=== PATIENT | female | born 1990 | race Caucasian/White ===

== ENCOUNTER 2017-07-26 04:53 | Inpatient (IN) | payer OTHER, SELFPAY ==
[2017-07-26 05:24] VITALS: BMI 31.3
[2017-07-26] MEDS ORDERED: Promethazine HCl 25 MG/ML VIAL IM PRN (05:37)
[2017-07-26] MEDS ORDERED: Ondansetron HCl/PF 4 MG/2 ML Vial IVP PRN (05:37)
[2017-07-26] MEDS ORDERED: Lidocaine 1% (PF) 30 ML VIAL SC PRN (05:37)
[2017-07-26] MEDS ORDERED: LR / Pitocin 40 units/1000 ml 1,000 ML IV PRN (05:37)
[2017-07-26] MEDS ORDERED: Ibuprofen 800 MG TAB PO PRN (05:37)
[2017-07-26] MEDS ORDERED: Oxytocin 10 UNITS/ML VIAL ONE (05:43)
--- NOTE | 2017-07-26 06:19 | HP ---
DATE: 07/26/2017 TIME OF EVALUATION: 0530. LOCATION: Labor and Delivery. Patient of Dr. Myers. REASON FOR EVALUATION: Eminent delivery at term. HISTORY OF PRESENT ILLNESS: This is a 26-year-old G2, P1, at term who sees Dr. Myers who desires low intervention during . She arrived to Labor and Delivery at approximately 0530 and was found to be 9.5 cm dilated. She has an uncomplicated course. ALLERGIES: None. PAST SURGICAL HISTORY: Includes a neck surgery for a cyst removal. OBSTETRIC HISTORY: Significant for prior vaginal . PHYSICAL EXAMINATION: She is afebrile and normotensive. CERVICAL EXAM: Cervical examination reveals a cervix that is 9-10 cm, completely effaced about +1 s tation. heart tones are in the 140s to 150s on Doppler. Contractions are approximately every 3-5 minutes. ASSESSMENT: This is a patient who is a G2, P1 at term, GBS negative, who arrived as a stat admissio n for entering second stage of labor. Dr. Myers is not available for delivery. PLAN: 1. Admit to Labor and Delivery. 2. Patient desires low intervention. 3. Pain meds per protocol as needed. 4. Await delivery.
[2017-07-26 06:31] LABS: Hematocrit 39.3 % (36.0-47.0); Mean Platelet Volume 9.5 fL (7.4-10.4); Red Blood Cell (RBC) Count 4.08 mill/uL (4.20-5.40); White Blood Cell (WBC) Count 7.1 thou/uL (4.8-10.8)
[2017-07-26] MEDS ORDERED: Preparation H Ointment 28 GM TUBE PR PRN (06:44)
[2017-07-26] MEDS ORDERED: Adacel (T-DAP) 0.5 ML VIAL IM ONE (06:44)
[2017-07-26] MEDS ORDERED: Measles/Mumps/Rubella 10 MCG/0.5 ML VIAL SC ONE (06:44)
[2017-07-26] MEDS ORDERED: Milk Of Magnesia 30 ML UDCUP PO PRN (06:44)
[2017-07-26] MEDS ORDERED: diphenhydrAMINE HCl 25 MG CAP PO PRN (06:44)
[2017-07-26] MEDS ORDERED: Benzocaine/Menthol 20-0.5% 60 ML CAN TOP PRN (06:44)
[2017-07-26] MEDS ORDERED: Acetaminophen/Codeine 30-300mg Tablet PO PRN ×2 (06:44)
[2017-07-26] MEDS ORDERED: Bisacodyl 10 MG SUPP PR PRN (06:44)
[2017-07-26] MEDS ORDERED: Lanolin Ointment 7 GM TUBE TOP PRN (06:44)
[2017-07-26] MEDS ORDERED: Varicella virus, LIVE 0.5 ML VIAL SC ONE (06:44)
[2017-07-26] MEDS ORDERED: LR / Pitocin 40 units/1000 ml 1,000 ML IV SCH (06:45)
--- NOTE | 2017-07-26 07:06 | PRG ---
DATE OF SERVICE: 07/26/2017 TIME: 652 ARTERIAL CORD GAS The patient's cord gas has returned with a pH of 7.3, pCO2 at 41 and base excess -2.5. This was emily en from the side of the placental surface.
[2017-07-26] MEDS: Lactated Ringer's 1,000 ML IV SCH ×2 (07:13→14:26)
[2017-07-26 07:26] LABS: CO2 Tension (PaCO2) 41.8 mmHg (44.0-56.0)
--- NOTE | 2017-07-26 08:26 | DN ---
DATE OF SERVICE: 07/26/2017 TIME OF DELIVERY: 0619 hours. LOCATION: Labor and Delivery. PREPROCEDURE DIAGNOSIS: G2, P1, at term, who was admitted with eminent delivery. POST-PROCEDURE DIAGNOSES: 1. G2, P1, at term, who was admitted with eminent delivery. 2. Status post spontaneous vaginal . DELIVERING PHYSICIAN: Drew Bailey MD ANESTHESIA: None. FINDINGS: 1. male with Apgars 8 and 8. 2. Three-vessel cord intact placenta. 3. Second degree laceration noted. 4. Patient delivered on all fours (Clara maneuver). 5. NICU present for delivery. ESTIMATED BLOOD LOSS: Less than or equal to 300 mL. COMPLICATIONS: None. COUNTS: Correct. Laceration was repaired with local anesthesia approximately 5 mL of 1% lidocaine with 2-0 chromic. All counts were correct. Placenta and gas specimen sent. The gas was sent from the placental surface as the section of cord was not able to have a gas blood sample collected. The patient has a handwritten progress note also on the chart. TECHNIQUE: Patient progressed to spontaneous vaginal delivery while she was on all fours pushing (G askin). Second degree laceration was noted and this was repaired. The patient tolerated the repair well and the baby had assessment by Neonatology. There was a 3-vessel cord and placenta was intact . It was sent for meconium staining noted before delivery. The patient will have routine recovery.
[2017-07-26] MEDS: Ferrous Sulfate 325 MG TAB PO SCH ×2 (11:09→17:22)
[2017-07-26] MEDS: Prenatal Vitamin 1 TAB PO SCH (11:16)
[2017-07-26] MEDS: Docusate (Surfak) 240 MG CAP PO SCH ×2 (11:16→21:09)
--- NOTE | 2017-07-26 13:04 | PDOC.PP ---
Post Progress Note Post Day #: 0 -: no concerns, no pain, doing well PO intake tolerated: yes Flatus: yes Ambulation: yes Vital Signs (12 hours) Temp Pulse Resp BP 07/26/17 11:10 65 20 110/61 07/26/17 10:05 98.2 F 70 20 109/59 L 07/26/17 08:00 98.1 F 58 L 18 Weight Weight 212 lb - Physical Examination General: NAD Fundus firm & at: umb Extremities: negative homans (B) Skin: no rash Result Diagrams: 07/26/17 05:48 Additional Labs: Post Labs Blood Type O POSITIVE 07/26/17 05:48 Hep Bs Antigen Non-Reactive S/CO (NonReactive) 07/26/17 05:48 (1) Vaginal delivery Code(s): O80 - ENCOUNTER FOR FULL-TERM UNCOMPLICATED DELIVERY Status: Acute - Assessment/Plan PPD0 sp precip delivery this AM. Plan for DC tomorrow if baby DC.
[2017-07-26] MEDS: Ibuprofen 800 MG TAB PO SCH ×3 (14:27→21:10)
[2017-07-27 04:55] LABS: Hematocrit 33.7 % (36.0-47.0); Mean Platelet Volume 9.1 fL (7.4-10.4); Red Blood Cell (RBC) Count 3.48 mill/uL (4.20-5.40)
[2017-07-27] MEDS: Ibuprofen 800 MG TAB PO SCH (05:02)
[2017-07-27 07:58] VITALS: BP 110/62; TEMP 97.6
[2017-07-27] MEDS: Lactated Ringer's 1,000 ML IV SCH (09:06)
[2017-07-27] MEDS: Ferrous Sulfate 325 MG TAB PO SCH (09:06)
[2017-07-27] MEDS: Prenatal Vitamin 1 TAB PO SCH (09:07)
[2017-07-27] MEDS: Docusate (Surfak) 240 MG CAP PO SCH (09:07)
== END 2017-07-27 12:30 | disposition home or self-care (01) | DRG 775 ==
LOC: L&D/OP 04:53 → L&D-LIB 06:18 → 3SW 10:07
PROVIDERS: ADMIT Obstetrics & Gynecology; ATTEND Obstetrics & Gynecology
PROC: 10E0XZZ Delivery of Products of Conception, External Approach (ICD-10-PCS; principal; 2017-07-26)
PROC: 0KQM0ZZ Repair Perineum Muscle, Open Approach (ICD-10-PCS; 2017-07-26)
DX: O77.0 Labor and delivery complicated by meconium in amniotic fluid (principal); O70.1 Second degree perineal laceration during delivery; Z37.0 Single live birth; Z3A.38 38 weeks gestation of pregnancy
CPT/HCPCS: 36415; 82805; 85027; 86780; 87340; 87389; 88307; J2001; J2590

== ENCOUNTER 2018-07-20 17:22 | Emergency (ER) | payer OTHER ==
[2018-07-20 18:09] LABS: Hemoglobin 15.8 g/dL (12.0-16.0); Mean Corpuscular HGB CONC 33.7 g/dL (32.0-36.0); Mean Corpuscular Volume 91.9 fL (78.0-98.0); Mean Platelet Volume 8.8 fL (7.4-10.4); Platelet Count 240 thou/uL (130-400); RBC Distribution Width 11.7 % (11.5-14.5); Red Blood Cell (RBC) Count 5.09 mill/uL (4.20-5.40); White Blood Cell (WBC) Count 20.6 thou/uL (4.8-10.8)
[2018-07-20 18:24] LABS: ALT (SGPT) 17 U/L (8-55); AST (SGOT) 15 U/L (5-34); Albumin 4.5 g/dL (3.5-5.0); Alkaline Phosphatase 85 U/L (40-150); Anion Gap 18 mmol/L (10-20); BUN (Urea Nitrogen) 9 mg/dL (7.0-18.7); Bilirubin, Total 2.2 mg/dL (0.2-1.2); Calc. Creatinine Clearance 0 mL/min (70-130); Carbon Dioxide 20 mmol/L (22-29); Chloride 100 mmol/L (98-107); Estimated GFR-MDRD 75; Globulin 3.9 g/dL (2.4-3.5); Glucose 119 mg/dL (70-105); Lipase 23 U/L (8-78); Potassium 3.5 mmol/L (3.5-5.1); Protein, Total 8.4 g/dL (6.0-8.3); Sodium 134 mmol/L (136-145)
[2018-07-20 18:30] LABS: Bilirubin Negative (Negative); Blood, Urine Moderate (Negative); Clarity CLOUDY (Clear); Glucose, Urine (Dipstick) Negative (Negative); Leukocyte Large (Negative); Nitrite Positive (Negative); Protein, Urine (Dipstick) 100 mg/dL (Neg-Trace); Specific Gravity, Urine 1.016 (1.002-1.036); Urobilinogen 0.2 mg/dL (0.2-1.0); pH, Urine 5.5 (5.0-9.0)
[2018-07-20 18:34] LABS: Bacteria/HPF 2+ HPF (None Seen); Hyaline Casts/LPF 0-3 HYALINE CAST LPF (0-3 Hyaline); Pathc Cast-AUWi Flag 0.72 (0-2.49)
[2018-07-20 18:35] LABS: Pregnancy Test - Urine (BHCG) POSITIVE (Negative); Pregu Control Background? CLEAR/WHITE (CLR/WHITE); Pregu Control Bar Appear? YES (CONTROL BAR); Specific Gravity 1.016 (1.002-1.036)
[2018-07-20 18:39] LABS: Band 5 % (5-11); Lymphocytes 3 % (21-51); MDiff Complete? YES; Monocytes 4 % (0-10); Neutrophil 88 % (42-75); PLT Morphology Comment Appears Adequate; RBC Morphology Normal
[2018-07-20] MEDS ORDERED: cefTRIAXone\\ROCEPHIN 2 GM VIAL ONE (19:08)
--- NOTE | 2018-07-20 19:12 | ULT ---
OBSTETRICAL SONOGRAM: HISTORY: Early . Pelvic pain. TECHNIQUE: Transvaginal imaging. FINDINGS: The urinary bladder is decompressed. A retroverted uterus contains a yolk sac and a pole. Hea rt motion at 160 beats per minute. Measurements correlate with 7 weeks' 0 days' gestational age. He terogeneous subchorionic fluid collection along the lower uterine segment has the appearance of a sma ll, subchorionic hematoma. No free fluid in the pelvis. Each ovary has a normal appearance and demo nstrates good color and spectral Doppler flow. IMPRESSION: 1. Early intrauterine gestation. 2. Retroverted uterus. 3. Small, subchorionic hematoma. 4. Measurements correlate with 7 weeks' 0 days' gestational age. POS: BST
== END 2018-07-20 21:08 | disposition home or self-care (01) ==
LOC: ERS 17:22
DX: O23.01 Infections of kidney in pregnancy, first trimester (principal); N12 Tubulo-interstitial nephritis, not specified as acute or chronic; O99.341 Other mental disorders complicating pregnancy, first trimester; F32.9 Major depressive disorder, single episode, unspecified; Z87.891 Personal history of nicotine dependence
CPT/HCPCS: 76856; 80053; 81003; 81015; 81025; 83690; 84702; 85025; 86850; 86900; 86901; 96361; 96365; J0696

== ENCOUNTER 2019-02-24 16:12 | Inpatient (IN) | payer OTHER ==
[2019-02-24 16:34] VITALS: BMI 31.7
[2019-02-24] MEDS ORDERED: Ondansetron PF 4 MG/2 ML Vial IVP PRN ×2 (16:39→17:46)
[2019-02-24] MEDS ORDERED: Butorphanol Tartrate 1 MG/ML VIAL SLOW IVP PRN (16:39)
[2019-02-24] MEDS ORDERED: Zolpidem Tartrate 5 MG TAB PO PRN (16:39)
[2019-02-24] MEDS ORDERED: Lactated Ringer's 1,000 ML IV SCH (16:45)
[2019-02-24] MEDS: Lactated Ringer's 1,000 ML IV SCH ×2 (16:50→21:24)
[2019-02-24 17:03] LABS: Mean Corpuscular HGB CONC 33.9 g/dL (32.0-36.0); Mean Corpuscular Hemoglobin 30.8 pg (27.0-31.0); Mean Platelet Volume 9.2 fL (7.4-10.4); Platelet Count 232 thou/uL (130-400); RBC Distribution Width 12.8 % (11.5-14.5); White Blood Cell (WBC) Count 9.5 thou/uL (4.8-10.8)
[2019-02-24] MEDS ORDERED: Fentanyl 4 mcg/Bup 0.1% Cadd 100 ML ONE (17:18)
[2019-02-24] MEDS ORDERED: Lidocaine 1% (PF) 30 ML VIAL ONE (17:19)
[2019-02-24 17:44] LABS: Syphilis Antibody Nonreactive (Nonreactive); Syphilis Antibody Index 0.03 S/CO (<1.00 Non-Reactive)
[2019-02-24 17:45] LABS: HBSAg Index 0.35 S/CO (0-0.99); Hep B Surf Ag Non-Reactive S/CO (NonReactive)
[2019-02-24] MEDS ORDERED: Fentanyl 100 MCG/2 ML VIAL ONE (17:45)
[2019-02-24] MEDS ORDERED: Lactated Ringer's 500 ML IV PRN (17:46)
[2019-02-24] MEDS ORDERED: Promethazine HCl 25 MG/ML VIAL IM PRN (17:46)
[2019-02-24] MEDS ORDERED: Acetaminophen 325 MG TAB PO PRN (17:46)
[2019-02-24] MEDS ORDERED: Lidocaine 1.5%/Epinephrine 1:200,000 5 ML AMPUL IJ ONE (17:46)
[2019-02-24] MEDS ORDERED: ePHEDrine/0.9% NaCl/PF SYRINGE 50 mg/10 ml SLOW IVP PRN (17:46)
[2019-02-24] MEDS ORDERED: Eucerin (Mineral Oil/Petrolatum,White) 30 gm Jar TOP PRN (17:46)
[2019-02-24] MEDS ORDERED: Naloxone HCl 0.4 mg/ml Vial IVP PRN ×2 (17:46)
[2019-02-24] MEDS ORDERED: diphenhydrAMINE 50 MG/ML VIAL IVP PRN (17:46)
[2019-02-24] MEDS ORDERED: Fentanyl 4 mcg/Bupivacaine 0.1% Cassette 100 ML EPIDURAL SCH (18:00)
[2019-02-24] MEDS ORDERED: Communication Order-Pharmacy FS SCH (18:00)
--- NOTE | 2019-02-24 22:04 | PDOC.LDHP ---
Labor and Delivery H&P Chief complaint: contractions HPI: Pt presents for contractions @ 38+ weeks. VTX presentation confirmed on admit. Current gestational age (weeks): 38 Due date: 03/05/19 Dating criteria: last menstrual period, first trimester ultrasound Grav: 3 Para: 2 OB History Details: 2 Abnormal US findings: No Current medications: pre- vitamins, other (prozac 40mg a day) Previous surgical history: none Allergies/Adverse Reactions: Allergies Allergy/AdvReac Type Severity Reaction Status Date / Time No Known Allergies Allergy Verified 02/24/19 16:35 Social history: none - Physical Exam Vital signs reviewed and normal: yes General: NAD Heart: RRR Lungs: CTAB Abdomen: gravid Extremeties: no edema FHT: category 1 - Vaginal Exam cm dilated: 5 Effacement: 90% Station: 0 - OB Labs Blood type: O RH: positive Antibody Screen: negative HIV: negative RPR: negative HEPSAg: negative 1 hour GCT: negative GBS: negative Rubella: immune - Assessment L&D Assessment: term patient in labor - Plan Plan: admit to L&D, labor augmentation if indicated, informed consent obtained, anesthesia consult for pain management -: A/P: @ 38+ weeks in active labor. Admit, anticipate .
[2019-02-24] MEDS: NS / Oxytocin 40 units/1000ml 1,000 ML ONE (22:25)
--- NOTE | 2019-02-24 22:33 | PDOC.OPDEL ---
OB Operative/Delivery Note Delivery Dr/Surgeon: Louis Pre-Delivery Diagnosis: active labor Procedure/Post Delivery Dx: spontaneous vaginal delivery Weeks gestation: 38 Anesthesia: epidural - Findings A Sex: male - Additional Findings/Plan Repaired Obstetrical Laceration: periurethral (right) Estimated blood loss: 150ml Post delivery plan: routine recovery
[2019-02-25] MEDS: NS / Oxytocin 40 units/1000ml 1,000 ML ONE (00:14)
[2019-02-25] MEDS ORDERED: Milk Of Magnesia 30 ML UDCUP PO PRN (01:45)
[2019-02-25] MEDS ORDERED: Benzocaine-Menthol 82.5 ML CAN TOP PRN (01:45)
[2019-02-25] MEDS ORDERED: diphenhydrAMINE 25 MG CAP PO PRN (01:45)
[2019-02-25] MEDS ORDERED: Bisacodyl 10 MG SUPP PR PRN (01:45)
[2019-02-25] MEDS ORDERED: HYDROcodone/Acetaminophen 5/325 mg Tablet PO PRN ×2 (01:45)
[2019-02-25] MEDS ORDERED: NS / Oxytocin 40 units/1000ml 1,000 ML IV SCH (01:45)
[2019-02-25] MEDS ORDERED: Ondansetron PF 4 MG/2 ML Vial IVP PRN (01:45)
[2019-02-25] MEDS ORDERED: Lanolin Ointment 7 GM TUBE TOP PRN (01:45)
[2019-02-25] MEDS ORDERED: Preparation H Ointment 28 GM TUBE PR PRN (01:45)
[2019-02-25] MEDS: Ibuprofen 800 MG TAB PO SCH ×3 (05:35→22:37)
--- NOTE | 2019-02-25 08:12 | PDOC.PP ---
Post Progress Note Post Day #: 1 Subjective: doing well, some questions about breast feeding PO intake tolerated: yes Flatus: yes Ambulation: yes Vital Signs (12 hours) Temp Pulse Resp BP Pulse Ox 02/25/19 03:33 98.5 F 65 18 107/65 98 02/25/19 02:30 98.6 F 72 18 111/60 95 02/25/19 01:25 98.2 F 62 18 117/66 97 Weight Weight 215 lb - Physical Examination General: NAD Respiratory: non-labored breathing Abdominal: no distention Fundus firm & at: below umb Skin: no rash Neurological: no gross focal deficits Psychiatric: A&Ox3, normal affect Result Diagrams: 02/24/19 16:54 Additional Labs: Post Labs Blood Type O POSITIVE 02/24/19 16:54 Hep Bs Antigen Non-Reactive S/CO (NonReactive) 02/24/19 16:54 (1) Vaginal delivery Code(s): O80 - ENCOUNTER FOR FULL-TERM UNCOMPLICATED DELIVERY Status: Acute - Assessment/Plan A/P: PPD1 doing well, LC today. Likely DC tomorrow.
[2019-02-25] MEDS: Prenatal Vitamin 1 TAB PO SCH (08:16)
[2019-02-25] MEDS: Ferrous Sulfate 325 MG TAB PO SCH ×2 (08:16→22:38)
[2019-02-25] MEDS: Docusate Calcium (SURFAK) 240 MG CAP PO SCH ×2 (08:16→22:38)
[2019-02-25] MEDS ORDERED: Adacel (T-DAP) 0.5 ML SYRINGE IM ONE (09:00)
[2019-02-26] MEDS: Ibuprofen 800 MG TAB PO SCH (05:58)
[2019-02-26] MEDS: Ferrous Sulfate 325 MG TAB PO SCH (07:46)
--- NOTE | 2019-02-26 08:01 | PDOC.PP ---
Post Progress Note Post Day #: 2 PO intake tolerated: yes Flatus: yes Ambulation: yes Vital Signs (12 hours) Temp Pulse Resp BP 02/26/19 02:00 97.8 F 68 18 109/56 L Weight Weight 215 lb - Physical Examination General: NAD Respiratory: non-labored breathing Abdominal: no distention, appropriately TTP Fundus firm & at: umb Neurological: no gross focal deficits Psychiatric: normal affect Result Diagrams: 02/24/19 16:54 Additional Labs: Post Labs Blood Type O POSITIVE 02/24/19 16:54 Hep Bs Antigen Non-Reactive S/CO (NonReactive) 02/24/19 16:54 - Assessment/Plan PPD2 s/p TSVD VSSAF Doing well , appropriate lochia , LC consult Rh pos Rimm DC home FU 6w
[2019-02-26 08:22] VITALS: BP 109/58; TEMP 97.9
[2019-02-26] MEDS: Docusate Calcium (SURFAK) 240 MG CAP PO SCH (08:43)
[2019-02-26] MEDS: Prenatal Vitamin 1 TAB PO SCH (08:43)
== END 2019-02-26 11:25 | disposition home or self-care (01) | DRG 807 ==
LOC: L&D/OP 16:12 → L&D 16:48 → 3SW 02-25 01:44
PROVIDERS: ADMIT Obstetrics & Gynecology; ATTEND Obstetrics & Gynecology
PROC: 10E0XZZ Delivery of Products of Conception, External Approach (ICD-10-PCS; principal; 2019-02-24)
DX: O71.82 Other specified trauma to perineum and vulva (principal); Z37.0 Single live birth; Z3A.38 38 weeks gestation of pregnancy
CPT/HCPCS: 36415; 51702; 85027; 86780; 86850; 86900; 86901; 87340; 99285; J2001; J3010; J3490

== ENCOUNTER 2019-03-04 11:31 | Outpatient (CLI) | payer OTHER ==
--- NOTE | 2019-03-04 11:57 | ULT ---
EXAM: Right lower extremity venous Doppler US HISTORY: Right lower extremity edema and pain FINDINGS: Grayscale, color-flow, Doppler evaluation, spectral analysis of the right lower extremity venous stru ctures is performed with 2-D imaging. The left common femoral, superficial femoral, popliteal, posterior tibial, proximal greater saphenous and profunda femoral veins are imaged. There is normal luminal compressibility, flow, and augmentation the visualized deep venous structures of the right lower extremity. IMPRESSION: No evidence of a deep vein thrombosis in the right lower extremity.
== END 2019-03-04 11:32 | disposition home or self-care (01) ==
LOC: SCSULT 11:31
PROVIDERS: ATTEND Family Medicine
DX: M79.604 Pain in right leg (principal)